=== PATIENT | female | born 1995 | race Caucasian/White ===

== ENCOUNTER 2017-02-07 18:59 | Observation (INO) | payer OTHER ==
--- NOTE | 2017-02-07 19:50 | RAD ---
INDICATION: Chest pain and tachycardia COMPARISON: None. TECHNIQUE: Single AP portable view of the chest was obtained. FINDINGS: Image quality is compromised due to the relative inferiority of a portable chest x-ray. The heart and mediastinum exhibit normal size and contour. The lungs are grossly clear. There is no evidence of a large pleural effusion. Visualized bones are normal for the patient's age. IMPRESSION: No radiographic evidence for acute cardiopulmonary abnormality on this portable chest x-ray.
[2017-02-07 20:11] LABS: Hematocrit 40 % (35-47); Mean Corpuscular HGB Conc 35 g/dl (31-36); Mean Corpuscular Hemoglobin 31 pg (27-31); Mean Corpuscular Volume 90 fL (80-97); Mean Platelet Volume 8 um3 (7.4-10.4); Red Blood Count 4.46 10^6/ul (4.0-5.4); Red Cell Distribution Width 13 % (10.5-15); White Blood Count 10.4 10^3/ul (3.5-10.8)
[2017-02-07 20:29] LABS: Albumin 4.2 g/dL (3.2-5.2); BUN/Creatinine Ratio 19.1 (8-20); Calcium 9.2 mg/dL (8.6-10.3); EGFR Non-African American 79.3 (>60); Globulin 3.2 g/dL (2-4); Potassium 3.8 mmol/L (3.5-5.0); Total Bilirubin 0.4 mg/dL (0.2-1.0); Total Protein 7.4 g/dL (6.4-8.9)
[2017-02-07 20:31] LABS: Troponin I 0.01 ng/mL (<0.04)
[2017-02-07] MEDS ORDERED: Iohexol 350* (CONTRAST) 500 ML MDV IV ONE (20:32)
--- NOTE | 2017-02-07 22:02 | RAD ---
INDICATION: Shortness of breath chest pain COMPARISON: None TECHNIQUE: Axial source images were acquired following the administration of 61 mL Omnipaque [address] angiographic technique. Coronal and sagittal reconstructed images were constructed and reviewed. FINDINGS: There there are no filling defects in the pulmonary arteries to indicate acute pulmonary embolic disease. There are no focal infiltrates or effusions. There are no pulmonary parenchymal masses. The heart is normal in size. There is no evidence of pericardial effusion. There is no evidence of aortic aneurysm or dissection. There is no mediastinal, hilar, or axillary lymphadenopathy. The visualized osseous structures appear normal. Limited views of the upper abdomen show no abnormalities. IMPRESSION: Normal CT of the chest without pulmonary embolism.
[2017-02-07] MEDS ORDERED: Albuterol 2.5 MG/3 ML NEB.SOL* (0.083%) INH ONE (22:05)
[2017-02-07] MEDS ORDERED: Magnesium Sulfate 2 GM IV* 2 GM/50 ML BAG IVPB ONE (23:31)
[2017-02-07] MEDS ORDERED: Albuterol/Ipratropium NEB.SOL* Albuterol 2.5 MG/Ipratropium 0.5 MG 3 ML INH ONE (23:31)
[2017-02-08] MEDS ORDERED: methylPREDNISolone SOD SUCC* 125 MG 2 ML VIAL IV ONE (00:41)
[2017-02-08] MEDS ORDERED: Lidocaine 2% VISCOUS* 15 ML UDC PO ONE (00:48)
[2017-02-08] MEDS ORDERED: Al Hydrox/Mg Hydrox/Simet LIQ* 30 ML UDC PO ONE (00:48)
[2017-02-08] MEDS ORDERED: Enoxaparin(*) 60 MG/0.6 ML SYR SUBCUT ONE (02:20)
--- NOTE | 2017-02-08 03:28 | HP ---
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 Upon return, she was diagnoses with mononucleosis. Two days ago she developed non- exertional, non-radiating substernal sharp to pressure-like chest discomfort associated with SOB, but no N/V, F/C, cough, congestion, sweats, palpitations, or light-headedness. She does have fatigue from the mono, but this is stable. She was given an albuterol neb in the ED which made her chest discomfort worse initially. Afterwards, her saO2 was noted to decrease to 90% with ambulation. After a 2nd albuterol neb, she was able to ambulate on RA maintaining an saO2>95 %. Admission was requested for ongoing concern for PE. ED gave 60mg SQ enoxaparin. Will observe on telemetry & obtain BLE venous US which if positive would be highly suggestive that the CTA is a false negative given her symptoms & clinical scenario. ACS is low suspicion, but will monitor on telemetry and recheck troponin/ECG in AM. If these are negative, no further work up is needed. Ultimately, given her response to bronchodilator I suspect she may have some hyperactive airway disease being driven by her mononucleosis, but will observe and further evaluate for more serious etiologies. PMedHx Allergies Cefprozil [From Cefzil] Allergy (Intermediate, Verified 02/07/17 19:06) Rash Shellfish Allergy Allergy (Unknown, Verified 02/07/17 19:06) Unknown Reaction Details denies chronic illness Medications OCP PSurgHx denies SocHx: no tobacco or recreational drugs, occasional alcohol denies excess; single; [employer] student FamHx: Grandmother: DVT ROS: as above, otherwise reviewed and all were negative Constitutional: NAD, normally developed, well-nourished white female vitals: Vital Signs Temp 36.8 C 02/08/17 04:13 Pulse 81 02/08/17 04:00 Resp 13 02/08/17 04:00 BP 113/71 02/08/17 04:00 Pulse Ox 96 02/08/17 04:00 Intake & Output 02/07/17 02/07/17 02/08/17 11:59 23:59 11:59 Intake Total 45 Balance 45 Weight 61.235 kg Intake: IV Fluids 45 HEENM: atraumatic; sclera/conjunctiva: non-icteric/clear; hearing: clinically intact; oropharynx: clear, mucosa moist Neck: soft tissue: non-tender; thyroid: normal Pulmonary: clear to auscultation bilaterally, good aeration, no accessory muscle use CV: RR/RR, normal S1S2, no carotid bruit, no jugular venous distention, 2+ B DP/ PT, no edema Abdominal: soft, non-distended, non-tender, no rebound/guarding/rigidity, normoactive bowel sounds, no hepatosplenomegaly or masses, no costovertebral angle tenderness Musculoskeletal: general: grossly intact; gait: stable Integumental: normal appearance and texture Psychiatric orientation: AA&O to PPS affect: calm mood: cooperative eye contact: good content: reliable responses: timely insight: good Testing: Lab Results 02/07/17 02/07/17 02/07/17 Range/Units 19:55 19:55 19:55 WBC 10.4 (3.5-10.8) 10^3/ul RBC 4.46 (4.0-5.4) 10^6/ul Hgb 14.0 (12.0-16.0) g/dl Hct 40 (35-47) % MCV 90 (80-97) fL MCH 31 (27-31) pg MCHC 35 (31-36) g/dl RDW 13 (10.5-15) % Plt Count 246 (150-450) 10^3/ul MPV 8 (7.4-10.4) um3 Neut % (Auto) 59.5 (38-83) % Lymph % (Auto) 30.9 (25-47) % [place] % (Auto) 8.4 (1-9) % Eos % (Auto) 0.8 (0-6) % Baso % (Auto) 0.4 (0-2) % Absolute Neuts (auto) 6.2 (1.5-7.7) 10^3/ul Absolute Lymphs (auto) 3.2 (1.0-4.8) 10^3/ul Absolute Monos (auto) 0.9 H (0-0.8) 10^3/ul Absolute Eos (auto) 0.1 (0-0.6) 10^3/ul Absolute Basos (auto) 0 (0-0.2) 10^3/ul Absolute Nucleated RBC 0.01 10^3/ul Nucleated RBC % 0.1 Sodium 137 (133-145) mmol/L Potassium 3.8 (3.5-5.0) mmol/L Chloride 105 (101-111) mmol/L Carbon Dioxide 25 (22-32) mmol/L Anion Gap 7 (2-11) mmol/L BUN 17 (6-24) mg/dL Creatinine 0.89 (0.51-0.95) mg/dL Est GFR ( Amer) 102.0 (>60) Est GFR (Non-Af Amer) 79.3 (>60) BUN/Creatinine Ratio 19.1 (8-20) Glucose 86 (70-100) mg/dL Lactic Acid 1.2 (0.5-2.0) mmol/L Calcium 9.2 (8.6-10.3) mg/dL Total Bilirubin 0.40 (0.2-1.0) mg/dL AST 18 (13-39) U/L ALT 11 (7-52) U/L Alkaline Phosphatase 49 (34-104) U/L Troponin I 0.01 (<0.04) ng/mL Total Protein 7.4 (6.4-8.9) g/dL Albumin 4.2 (3.2-5.2) g/dL Globulin 3.2 (2-4) g/dL Albumin/Globulin Ratio 1.3 (1-3) ECG, personally reviewed: no ischemia, no Q2/Q3/flipped T CXR, personally reviewed: IMPRESSION: No radiographic evidence for acute cardiopulmonary abnormality on this portable chest x-ray. CTA chest, personally reviewed: IMPRESSION: Normal CT of the chest without pulmonary embolism. Impression: 22F presenting with exertional SOB & chest pressure DIAGNOSIS & PLAN Primary SOB & chest pressure : CTA negative for PE : enoxaparin 1mg/kg x1 dose given by ED : obtain BLE US in AM, no further enoxaparin if negative : telemetry : trend troponin, if negative would no pursue stress testing in such a low risk individual : supplemental oxygen : albuterol nebs PRN : supportive care Secondary mononucleosis : no treatment currently indicated Admission Rational: CDU observation for r/o DVT/PE/ACS DVTp: enoxaparin SQ 1mg/kg Code Status: full HCP: mother
[2017-02-08] MEDS ORDERED: Acetaminophen TAB* 325 MG PO PRN (04:54)
[2017-02-08] MEDS ORDERED: traMADol TAB* 50 MG PO PRN (04:54)
[2017-02-08] MEDS ORDERED: Melatonin (NF) 3 MG TAB PO PRN (04:54)
[2017-02-08] MEDS ORDERED: Albuterol 2.5 MG/3 ML NEB.SOL* (0.083%) INH PRN (04:54)
[2017-02-08] MEDS ORDERED: Ondansetron INJ* 2 MG/ML VIAL IV PRN (04:54)
[2017-02-08] MEDS ORDERED: oxyCODONE TAB* 5 MG TAB PO PRN (04:54)
[2017-02-08] MEDS ORDERED: NS 0.9% 1000 ML* 1,000 ML IV SCH (05:00)
[2017-02-08] MEDS ORDERED: Omeprazole CAP* 20 MG PO SCH (06:00)
[2017-02-08] MEDS ORDERED: Docusate CAP* 100 MG PO SCH (09:00)
--- NOTE | 2017-02-08 09:22 | RAD ---
HISTORY: Chest pain, shortness of breath, evaluate for DVT COMPARISONS: None relevant TECHNIQUE: Multiple transverse and longitudinal ultrasound images were obtained of the bilateral lower extremities from the level of the common femoral vein inferiorly through to the infrapopliteal veins using grayscale, color Doppler, and spectral Doppler imaging with and without compression and with augmentation. FINDINGS: VEINS: The venous system of the bilateral lower extremities is compressible throughout its course, with normal flow on color Doppler imaging and normal response to augmentation on spectral Doppler imaging. SOFT TISSUES: Unremarkable. OTHER FINDINGS: None. IMPRESSION: NO RIGHT LOWER EXTREMITY DEEP VEIN THROMBOSIS. NO LEFT LOWER EXTREMITY DEEP VEIN THROMBOSIS
[2017-02-08 09:38] VITALS: BP 118/71
--- NOTE | 2017-02-08 11:12 | PN ---
Subjective Date of Service: 02/08/17 Interval History: Patient seen and examined at bedside. Patient states that she continues to have mild sternal chest pain, this pain is worse with palpation. Pt states that the GI cocktail made the pain worse. Denies fever, chills, shortness of breath, N/V/ D. Pt reports bringing up mucous in the morning. Family History: Unchanged from Admission Social History: Unchanged from Admission Past Medical History: Unchanged from Admission Objective Active Medications: Acetaminophen (Tylenol Tab*) 650 mg PO Q6H PRN Reason: FEVER/PAIN Albuterol (Ventolin 2.5 Mg/3 Ml Neb.Alexa*) 2.5 mg INH Q2H PRN Reason: SOB/ WHEEZING Docusate Sodium (Colace Cap*) 200 mg PO BID ALDO Sodium Chloride (Ns 0.9% 1000 Ml*) 1,000 mls @ 50 mls/hr IV PER [facility] Melatonin (Melatonin (Nf)) 3 mg PO BEDTIME PRN; Protocol Reason: Sleep Omeprazole (Prilosec Cap*) 20 mg PO DAILY@0600 ALDO Ondansetron HCl (Zofran Inj*) 4 mg IV Q6H PRN Reason: NAUSEA Oxycodone HCl (Roxycodone Tab*) 5 mg PO Q4H PRN Reason: PAIN Tramadol HCl (Ultram*) 50 mg PO Q6H PRN Reason: PAIN Vital Signs 02/08/17 02/08/17 02/08/17 03:30 04:00 04:13 Temperature 98.3 F Pulse Rate 82 81 Respiratory 16 13 Rate Blood Pressure 117/75 113/71 (mmHg) O2 Sat by Pulse 98 96 Oximetry 02/08/17 02/08/17 02/08/17 04:26 08:00 08:18 Temperature 97.5 F 98.3 F Pulse Rate 84 85 Respiratory 14 16 15 Rate Blood Pressure 134/74 118/71 (mmHg) O2 Sat by Pulse 98 98 Oximetry Oxygen Devices in Use Now: None Appearance: NAD, sitting up in bed Eyes: No Scleral Icterus Ears/Nose/Mouth/Throat: Mucous Membranes Moist Neck: NL Appearance and Movements; NL JVP, Trachea Midline Respiratory: Symmetrical Chest Expansion and Respiratory Effort, Clear to Auscultation Cardiovascular: NL Sounds; No Murmurs; No JVD, RRR Abdominal: NL Sounds; No Tenderness; No Distention Extremities: No Edema Skin: No Rash or Ulcers Neurological: Alert and Oriented x 3, NL Muscle Strength and Tone Lines/Tubes/Other Access: Clean, Dry and Intact Peripheral IV - site benign Nutrition: Taking PO's Result Diagrams: 02/07/17 19:55 02/07/17 19:55 Assess/Plan/Problems-Billing Assessment: Ms. Posada is a 22 yo female with no significant PMH who was recently diagnosed with mononucleosis who presented to the emergency room for exertional shortness of breath and chest pressure. - Patient Problems (1) Chest pain Code(s): R07.9 - CHEST PAIN, UNSPECIFIED SNOMED Code(s): 01672709 Comment: - Troponin - 0.01 and 0.00 - Pain is reproducible - EKG with no ischemia noted - CTA and bilateral LE US negative - PE/DVT ruled out - Suspect noncardiac chest pain (2) Mononucleosis Code(s): B27.90 - INFECTIOUS MONONUCLEOSIS, UNSPECIFIED WITHOUT COMPLICATION SNOMED Code(s): 70226578 Comment: - Supportive care (3) DVT prophylaxis Code(s): SAK5343 - SNOMED Code(s): 653824592 Comment: - Amublation (4) Full code status Code(s): Z78.9 - OTHER SPECIFIED HEALTH STATUS SNOMED Code(s): 296846094 Status and Disposition: OBV. Discharge to home when medically stable.
--- NOTE | 2017-02-08 21:13 | ED ---
Baldemar Vogt Billy, scribed for Mustapha Valiente MD on 02/07/17 at 2007 . 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 She also has SOB with exertion. Denies any pain with inspiration. Denies pain or swelling in the legs. Patient was diagnosed with mono last week, when she was at home in [place] for spring. She uses control. - History of Current Complaint Chief Complaint: EDChestPainROMI Time Seen by Provider: 02/07/17 19:21 Hx Obtained From: Patient Onset/Duration: Started Days Ago, Worse Since - last 3 hours Timing: Intermittent Initial Severity: Moderate Current Severity: Moderate Pain Intensity: 4 Pain Scale Used: 0-10 Numeric Aggravating Factor(s): Exertion Alleviating Factor(s): Nothing Associated Signs and Symptoms: Positive: Chest Pain, Shortness of Breath - Allergy/Home Medications Allergies/Adverse Reactions: Allergies Allergy/AdvReac Type Severity Reaction Status Date / Time Cefprozil [From Cefzil] Allergy Intermediate Rash Verified 02/07/17 19:06 Shellfish Allergy Allergy Unknown Unknown Verified 02/07/17 19:06 Reaction Details PMH/Surg Hx/FS Hx/Imm Hx Cardiovascular History: Denies: Hx Myocardial Infarction Respiratory History: Denies: Hx Asthma Infectious Disease History: No Infectious Disease History: Denies: Traveled Outside the [place] in Last 30 Days - Family History Known Family History: Negative: Cardiac Disease, Hypertension, Diabetes - Social History Alcohol Use: Weekly Substance Use Type: Reports: None Smoking Status (MU): Never Smoked Tobacco Review of Systems Negative: Fever, Chills Negative: Erythema Negative: Sore Throat Positive: Chest Pain Positive: Shortness Of Breath. Negative: Cough Negative: Abdominal Pain, Vomiting, Nausea Negative: Myalgia, Edema Negative: Rash All Other Systems Reviewed And Are Negative: Yes Physical Exam - Summary Physical Exam Summary: Constitutional: Well-developed, Well-nourished, Alert. (-) Distressed Skin: Warm, Dry HENT: Normocephalic; Atraumatic Eyes: Conjunctiva normal Neck: Musculoskeletal ROM normal neck. (-) JVD, (-) Stridor, (-) Tracheal deviation Cardio: Rhythm regular, rate tachycardia, Heart sounds normal; Intact distal pulses; The pedal pulses are 2+ and symmetric. Radial pulses are 2+ and symmetric. Systolic murmur with breath holding. Pulmonary/Chest wall: Diminished air flow. (-) Respiratory distress, (-) Wheezes, (-) Rales Abd: Soft, (-) Tenderness, (-) Distension, (-) Guarding, (-) Rebound Musculoskeletal: (-) Edema Lymph: (-) Cervical adenopathy Neuro: Alert, Oriented x3 Psych: Mood and affect Normal Triage Information Reviewed: Yes Vital Signs On Initial Exam: Initial Vitals Temp Pulse Resp BP Pulse Ox 99.0 F 118 15 168/95 100 02/07/17 19:02 02/07/17 19:02 02/07/17 19:02 02/07/17 19:02 02/07/17 19:02 Vital Signs Reviewed: Yes - [place] Coma Scale Coma Scale Total: 15 Diagnostics - Vital Signs Vital Signs Temp Pulse Resp BP Pulse Ox 02/07/17 19:18 112 98 02/07/17 19:04 99 F 118 15 168/95 100 02/07/17 19:02 99.0 F 118 15 168/95 100 - Laboratory Result Diagrams: 02/07/17 19:55 02/07/17 19:55 Lab Statement: Any lab studies that have been ordered have been reviewed, and results considered in the medical decision making process. - Radiology CXR Xray Interpretation: No Acute Changes Radiology Interpretation Completed By: Radiologist - CT CTA chest CT Interpretation: No Acute Changes CT Interpretation Completed By: Radiologist - EKG 1910 EKG Interpretation: NSR 99 bpm, no STEMI Re-Evaluation - Re-Evaluation First Eval Re-Evaluation Time: 22:07 Comment: Labs and imaging discussed. Second Eval Re-Evaluation Time: 23:30 Comment: On ambulation, O2 desatted from 99% to 91%. Lung sounds remain diminished. She will receive additional breathing treatment. Third Eval Re-Evaluation Time: 00:47 Comment: Breathing improved after second respiratory treatment. Lung sounds remained diminished. 98% when ambulating. She still complains of substernal pressure. Fourth Eval Re-Evaluation Time: 02:09 Comment: Mother is in the room at this time. Discussed option for admission. Chest Pain Course/Dx - Course Assessment/Plan: 22 y/o female to the ED with CC of chest pain and SOB. EKG shows NSR with no STEMI. CXR shows no active disease. CTA chest was negative for pulmonary embolism. Patient was given multiple breathing treatments here in the ED. We will empirically treat for pulmonary embolism due to clinical suspicion and high pre-test probability. Patient care discussed with Dr. Andino, who accepted the patient for admission. - Diagnoses Provider Diagnoses: Shortness of breath - Provider Notifications Discussed Care Of Patient With: Dr. Andino (hospitalist) @ 0220: accepts admission. Discharge - Discharge Plan Condition: Stable Disposition: ADMITTED TO [facility] Referrals: [facility] [Outside] The documentation as recorded by the Baldemar santana Billy accurately reflects the service I personally performed and the decisions made by me, Mustapha Valiente MD.
--- NOTE | 2017-02-09 05:46 | DS ---
DISCHARGE SUMMARY: DATE OF ADMISSION: 02/08/17 DATE OF DISCHARGE: 02/08/17 AGE: 22. ATTENDING PHYSICIAN: Dr. Navneet Redd *(dictated by Glory Portillo NP). PRIMARY CARE PROVIDER: [facility]. PRIMARY DIAGNOSIS: Atypical chest pain. SECONDARY DIAGNOSIS: Mononucleosis. STUDIES WHILE IN THE HOSPITAL: 1. Chest x-ray on 02/07/17: Radiologist's impression: No radiographic evidence for acute cardiopulmonary abnormality on this portable chest x-ray. 2. Chest thoracic CTA on 02/07/17. Radiologist's impression: Normal CTA of the chest without pulmonary embolism. 3. Bilateral venous Doppler study of the lower extremities on 02/08/17: Radiologist's impression: No right lower extremity deep vein thrombosis. No left lower extremity deep vein thrombosis. DISCHARGE MEDICATIONS: 1. Acetaminophen 650 mg oral every 6 hours as needed for pain. 2. Oral contraceptive pill. HISTORY OF PRESENT ILLNESS/HOSPITAL COURSE: Ms. Posada is a 22-year-old female who was recently diagnosed with mononucleosis. The patient states that 2 days ago, she developed a nonexertional, nonradiating, substernal, sharp, pressure- like chest discomfort that was associated with shortness of breath. She had no associated nausea, vomiting, fever, chills, cough, congestion, sweats, palpitations, or lightheadedness. The patient has had fatigue due to her mono. Based off of concerns, the patient presented to the emergency room for further evaluation of her symptoms. While in the emergency room, the patient was given albuterol which initially had made her chest discomfort worse. She was then noted to have decrease in her oxygen saturation with an O2 sat of 90% on room air with ambulation. After a second albuterol neb, the patient was able to ambulate on room air, maintaining oxygen saturation of greater than 95%. The patient underwent a CTA of her chest showing no evidence of pulmonary embolism. The patient was given an initial dose of 60 mg of subcu Lovenox while in the emergency room. The hospitalists were asked to evaluate the patient for possible admission to further work up to rule out pulmonary embolism or deep vein thrombosis. During the patient's hospital stay, acute coronary syndrome was felt to be a low suspicion. The patient was monitored on telemetry. No acute findings were found. The patient had a repeat EKG this morning showing no changes or signs of ischemia. The patient needs no further cardiac workup. As far as the possibility of a pulmonary embolism or DVT. A DVT has been ruled out, the patient does not have signs of a DVT on bilateral lower extremity venous Dopplers and was found to not have a PE on CTA of her chest. It is felt that possibly due to the patient's response to bronchodilator, the patient may have had some hyperactive airway disease being driven by her mononucleosis. The patient denies any shortness of breath or chest pain today. The patient does report some mucous production in the morning. The patient's chest discomfort could also represent a costochondritis if she may be coughing in her sleep. The patient is stable for discharge to home today. Ms. Posada is stable for discharge home today. Vital signs are as follows: temperature 98.3, heart rate 85, respiratory rate 15, O2 sat 98% on room air, blood pressure 118/71. DISCHARGE PLAN: Ms. Posada will be discharged home. Activity as tolerated. Regular diet. 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 The patient has been asked to return to the emergency room for development of recurrence of her shortness of breath or chest discomfort. This is a summarized report of a complex medical history. For further details, please see the entire medical record. TIME SPENT: Time spent for this discharge was 50 minutes, 25 minutes were spent [id number] with the patient and her mother discussing discharge plans and instructions. CONDITION ON DISCHARGE: Stable. Reviewed by HUSSEIN GARCIAS 02/09/17 0372 CC: [facility] [id number]/[facility] #: [id number] JOSE
== END 2017-02-08 12:10 | disposition home or self-care (01) ==
LOC: ED 18:59 → MEDTELE 02-08 03:13
PROVIDERS: ADMIT Hospitalist; ATTEND Internal Medicine
DX: R07.89 Other chest pain (principal); B27.90 Infectious mononucleosis, unspecified without complication; R06.02 Shortness of breath; Z88.1 Allergy status to other antibiotic agents
CPT/HCPCS: 36415; 71010; 71275; 80053; 83605; 84484; 85025; 87040; 93970; 96361; 96365; 96372; 96375; 99284; A9270-GY; G0378; J1650; J2930; Q9967